=== PATIENT | male | born 1975 | race Caucasian/White ===

== ENCOUNTER 2019-10-12 12:02 | Emergency (ER) | payer MEDICAID ==
[2019-10-12] MEDS ORDERED: Lidocaine 1% 30 ML SDV INJECT ONE (12:14)
--- NOTE | 2019-10-12 12:49 | EDM.PDOC ---
ED HPI GENERAL MEDICAL PROBLEM - General Stated Complaint: CUT KNUCKLE Time Seen by Provider: 10/12/19 12:15 Source of Information: Reports: Patient History Limitations: Reports: No Limitations - History of Present Illness INITIAL COMMENTS - FREE TEXT/NARRATIVE: Patient comes emergency department today with complaints of a laceration to his left hand. 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 This happened just prior to arrival. His last tetanus immunization was just a couple years ago. He denies any paresthesia of the dorsal finger. He denies any other injury or trauma to left hand. - Related Data Allergies Allergy/AdvReac Type Severity Reaction Status Date / Time aspirin AdvReac Nausea and Verified 04/01/16 19:35 Vomiting Home Meds: Home Meds Sertraline [Zoloft] 100 mg PO BEDTIME 12/16/13 [History] hydrOXYzine pamoate [Vistaril] 1 tab PO DAILY 05/15/14 [History] Omeprazole [Prilosec] 10 mg PO DAILY 05/16/14 [History] Past Medical History Gastrointestinal History: Reports: GERD ED ROS GENERAL - Review of Systems Review Of Systems: Comprehensive ROS is negative, except as noted in HPI. ED EXAM, SKIN/RASH Exam: See Below Exam Limited By: No Limitations General Appearance: Alert, WD/WN, No Apparent Distress Peripheral Pulses: 2+: Radial (L), Radial (R) Extremities: Normal Range of Motion, Normal Capillary Refill. No: Normal Inspection (Dorsal aspect of the left index finger at the PIP joint distal to proximal there is a linear laceration fillet type laceration that does traverse the PIP joint. Does not extend into the joint. CMS is intact appropriately. He is able to flex and extend the DIP PIP and MCP joints. The rest the left hand is atraumatic.) Neurological: Alert, Oriented, Normal Cognition, No Motor/Sensory Deficits Psychiatric: Normal Affect Skin: Warm, Dry, Intact, Normal Color, No Rash ED SKIN PROCEDURES - Laceration/Wound Repair Left Digit - 2nd (Index) Appearance: Subcutaneous, Linear, Clean Distal NVT: Neuro & Vascular Intact Anesthetic Type: Local Local Anesthesia - Lidocaine (Xylocaine): 1% Plain Local Anesthetic Volume: 4cc Skin Prep: Chlorhexidine (Hibiciens), Saline Saline Irrigation (cc's): 100 Exploration/Debridement/Repair: Wound Explored, In a Bloodless Field, Explored to Base Closed with: Sutures Lac/Wound length In cm: 1.5 Suture Size: 4-0 # of Sutures: 6 Suture Type: Nylon Tetanus Status Addressed: Yes Course - Orders/Labs/Meds Meds: Medications Discontinued Medications Generic Name Dose Route Start Last Admin Trade Name Brett PRN Reason Stop Dose Admin Lidocaine HCl 30 ml 10/12/19 12:14 Xylocaine-Mpf 1% INJECT 10/12/19 12:15 ONETIME ONE Departure - Departure Time of Disposition: 12:42 Disposition: Home, Self-Care 01 Clinical Impression: Laceration of finger - Discharge Information Instructions: Laceration Care, Adult, [id number] Additional Instructions: Wash daily with soap and water. Running water over is okay no soaking your hand in water. Bacitracin and bandage until healed. Watch for signs of infection. Finger splint while at work for the next week. May take off at home. Sutures out in 10. Recheck with PCP if any concerns and when getting your sutures out. - Assessment/Plan Assessment:: Dorsal left index finger laceration 2 cm at the PIP joint sutured. Plan: Wash daily with soap and water. Running water over is okay no soaking your hand in water. Bacitracin and bandage until healed. Watch for signs of infection. Finger splint while at work for the next week. May take off at home. Sutures out in 10. Recheck with PCP if any concerns and when getting your sutures out.
[2019-10-12 13:44] VITALS: BP 162/112; PULSE 84
== END 2019-10-12 12:53 | disposition home or self-care (01) ==
LOC: VM.ED 12:02
DX: S61.211A Laceration without foreign body of left index finger without damage to nail, initial encounter (principal); K21.9 Gastro-esophageal reflux disease without esophagitis; Z79.899 Other long term (current) drug therapy; Z88.6 Allergy status to analgesic agent; W26.0XXA Contact with knife, initial encounter; Y99.0 Civilian activity done for income or pay
CPT/HCPCS: 12001; 99282; 99283; J2001

== ENCOUNTER 2020-01-17 10:05 | Emergency (ER) | payer SELFPAY ==
--- NOTE | 2020-01-17 10:50 | EDM.PDOC ---
<Jeremy Dominguez G - Last Filed: 02/23/20 15:44> ED HPI GENERAL MEDICAL PROBLEM - General Stated Complaint: COVID SYMPTOMS;CHEST PAIN Time Seen by Provider: 01/17/20 10:30 - Related Data Allergies Allergy/AdvReac Type Severity Reaction Status Date / Time aspirin AdvReac Nausea and Verified 01/17/20 14:52 Vomiting Home Meds: Home Meds Sertraline [Zoloft] 100 mg PO BEDTIME 12/16/13 [History] hydrOXYzine pamoate [Vistaril] 1 tab PO DAILY 05/15/14 [History] Omeprazole [Prilosec] 10 mg PO DAILY 05/16/14 [History] Amoxicillin 500 mg PO BID #20 tab 01/18/20 [Rx] Course - Re-Assessments/Exams Free Text/Narrative Re-Assessment/Exam: 01/18/20 15:09 Influenza returned today positive for Influenza A and Adalid Arroyo PA-C has already placed on Tamiflu. Also Strep screen positive today for Group A strep. I will place on amoxicillin 500mg PO bid for 10 days. Patient was contacted by myself and updated on the new test findings and the new prescription for AMox bid sent electronically to [facility]. Departure - Departure Disposition: Home, Self-Care 01 Clinical Impression: Influenza - Discharge Information Prescriptions: Amoxicillin 500 mg PO BID #20 tab Instructions: Influenza, Adult, [id number], Albuterol inhalation aerosol, Oseltamivir capsules, Prednisone tablets Referrals: Teja Lay MD [Primary Care Provider] - Forms: ED Department Discharge Additional Instructions: Albuterol inhaler 2 puffs every 4-6 hours as needed for trouble breathing Prednisone 20mg 2 tabs every day for 6 days Tamiflu 75mg 1 twice daily for 5 days Off work until 48 hours after your last fever Recheck in clinic in 10-14 days <Adalid Arizmendi - Last Filed: 02/24/20 09:07> ED HPI GENERAL MEDICAL PROBLEM - General Source of Information: Reports: Patient History Limitations: Reports: No Limitations - History of Present Illness INITIAL COMMENTS - FREE TEXT/NARRATIVE: Pt. presents to ER with complaints of chest pain, cough, and chest congestion that started yesterday. Pt. initially presented to clinic but was sent to ER. He states that his has also been ill with similar symptoms. Pt. complains of body aches and fatigue. No nausea, vomiting, or diarrhea. Onset Date: 01/17/20 Location: Reports: Chest, Generalized Body Aches and Chest Discomfort Pain Score (Numeric/FACES): 3 Past Medical History Gastrointestinal History: Reports: GERD Psychiatric History: Reports: Anxiety ED ROS GENERAL - Review of Systems Review Of Systems: See Below Constitutional: Reports: Fever, Chills, Malaise HEENT: Reports: Nose Pain, Rhinitis, Sinus Problem, Throat Pain Respiratory: Reports: No Symptoms Cardiovascular: Reports: No Symptoms Endocrine: Reports: No Symptoms GI/Abdominal: Reports: No Symptoms : Reports: No Symptoms Musculoskeletal: Reports: No Symptoms Skin: Reports: No Symptoms Neurological: Reports: No Symptoms Psychiatric: Reports: No Symptoms Hematologic/Lymphatic: Reports: No Symptoms Immunologic: Reports: No Symptoms ED EXAM, GENERAL - Physical Exam Exam: See Below Exam Limited By: No Limitations General Appearance: Alert, WD/WN, No Apparent Distress Eye Exam: Bilateral Eye: Conjunctival Injection, EOMI Ears: Normal External Exam, Normal Canal, Hearing Grossly Normal, Normal TMs Throat/Mouth: Normal Inspection, Normal Lips, Normal Teeth, Normal Oropharynx, Normal Voice, No Airway Compromise Head: Atraumatic, Normocephalic Neck: Normal Inspection, Supple, Non-Tender, Full Range of Motion Respiratory/Chest: No Respiratory Distress, Lungs Clear, Normal Breath Sounds, No Accessory Muscle Use, Chest Non-Tender Cardiovascular: Normal Peripheral Pulses, Regular Rate, Rhythm, No JVD GI/Abdominal: Soft, Non-Tender, No Distention, No Mass (Male) Exam: Deferred Rectal (Males) Exam: Deferred Back Exam: Normal Inspection, Full Range of Motion Extremities: Normal Inspection, Normal Range of Motion, Non-Tender, No Pedal Edema, Normal Capillary Refill Neurological: Alert, Oriented, CN II-XII Intact, Normal Cognition, Normal Reflexes, No Motor/Sensory Deficits Psychiatric: Normal Affect, Normal Mood Skin Exam: Warm, Dry, Intact, Normal Color Lymphatic: No Adenopathy Course - Vital Signs Last Recorded V/S: Last Vital Signs Temp 36.8 C 01/17/20 10:30 Pulse 82 01/17/20 10:30 Resp 16 01/17/20 10:30 BP 132/76 01/17/20 10:30 Pulse Ox 97 01/17/20 10:30 - Orders/Labs/Meds Labs: Laboratory Tests 01/17/20 01/17/20 01/17/20 Range/Units 10:15 11:21 11:21 WBC 7.3 (4.0-10.0) x10^3/uL RBC 4.56 (4.5-6.0) x10^6/uL Hgb 14.7 (14.0-18.0) g/dL Hct 42.6 (40.0-52.0) % MCV 93.4 H (78.0-93.0) fL MCH 32.2 H (26.0-32.0) pg MCHC 34.5 (32.0-36.0) g/dL RDW Coeff of Ledy 12.6 (10.0-15.0) % Plt Count 177 (130-400) x10^3/uL Neut % (Auto) 77.2 (50.0-80.0) % Lymph % (Auto) 15.1 L (25.0-50.0) % Hall % (Auto) 5.4 (2.0-11.0) % Eos % (Auto) 1.5 (0.0-4.0) % Baso % (Auto) 0.8 (0.2-1.2) % PT 10.7 (9.5-12.3) SEC INR 1.0 L (2.0-3.5) Sodium (136-145) mmol/L Potassium (3.5-5.1) mmol/L Chloride (98-107) mmol/L Carbon Dioxide (21-32) mmol/L Anion Gap (10-20) mmol/L BUN (7-18) mg/dL Creatinine (0.70-1.30) mg/dL Est Cr Clr Drug Dosing Estimated GFR (MDRD) Glucose (74-106) mg/dL Calcium (8.5-10.1) mg/dL Corrected Calcium (8.5-10.1) mg/dL Total Bilirubin (0.2-1.0) mg/dL AST (15-37) U/L ALT (16-63) U/L Alkaline Phosphatase (46-116) U/L Troponin I (<=0.056) ng/mL C-Reactive Protein (<=0.9) mg/dL Total Protein (6.4-8.2) g/dL Albumin (3.4-5.0) g/dL Globulin Albumin/Globulin Ratio SARS CoV-2 RNA Rapid OLENA Negative (NEGATIVE) 01/17/20 Range/Units 11:21 WBC (4.0-10.0) x10^3/uL RBC (4.5-6.0) x10^6/uL Hgb (14.0-18.0) g/dL Hct (40.0-52.0) % MCV (78.0-93.0) fL MCH (26.0-32.0) pg MCHC (32.0-36.0) g/dL RDW Coeff of Ledy (10.0-15.0) % Plt Count (130-400) x10^3/uL Neut % (Auto) (50.0-80.0) % Lymph % (Auto) (25.0-50.0) % Hall % (Auto) (2.0-11.0) % Eos % (Auto) (0.0-4.0) % Baso % (Auto) (0.2-1.2) % PT (9.5-12.3) SEC INR (2.0-3.5) Sodium 139 (136-145) mmol/L Potassium 4.4 (3.5-5.1) mmol/L Chloride 103 (98-107) mmol/L Carbon Dioxide 25 (21-32) mmol/L Anion Gap 15.4 (10-20) mmol/L BUN 15 (7-18) mg/dL Creatinine 1.2 (0.70-1.30) mg/dL Est Cr Clr Drug Dosing TNP Estimated GFR (MDRD) > 60 Glucose 96 (74-106) mg/dL Calcium 8.6 (8.5-10.1) mg/dL Corrected Calcium 9.00 (8.5-10.1) mg/dL Total Bilirubin 0.5 (0.2-1.0) mg/dL AST 32 (15-37) U/L ALT 24 (16-63) U/L Alkaline Phosphatase 108 (46-116) U/L Troponin I < 0.017 (<=0.056) ng/mL C-Reactive Protein < 0.2 (<=0.9) mg/dL Total Protein 6.9 (6.4-8.2) g/dL Albumin 3.5 (3.4-5.0) g/dL Globulin 3.4 Albumin/Globulin Ratio 1.03 SARS CoV-2 RNA Rapid OLENA (NEGATIVE) Departure - Departure Time of Disposition: 12:00
--- NOTE | 2020-01-17 11:14 | CR ---
[id number] RAD/RAD Chest PA And Lateral EXAM: FRONTAL AND LATERAL CHEST INDICATION: SYNCOPE, BRADYCARDIA. COMPARISON: None. DISCUSSION: The heart and lungs are normal in appearance. IMPRESSION: 1. Negative exam. Marquez Le MD 01/17/20 [id number] Thank you for allowing us to participate in the care of your patient.
[2020-01-17 11:49] LABS: ANION GAP 15.4 mmol/L (10-20); CHLORIDE,CL 103 mmol/L (98-107); SODIUM,NA 139 mmol/L (136-145)
[2020-01-17 15:00] VITALS: BP 132/76; PULSE 82
== END 2020-01-17 12:06 | disposition home or self-care (01) ==
LOC: VM.ED 10:05
DX: J10.1 Influenza due to other identified influenza virus with other respiratory manifestations (principal); Z20.828 Contact with and (suspected) exposure to other viral communicable diseases; Z79.899 Other long term (current) drug therapy; Z88.6 Allergy status to analgesic agent
CPT/HCPCS: 36415; 71046; 80053; 84484; 85025; 85610; 86140; 87081; 87804; 87804-59; 87880-QW; 93005; 99284; 99285-25; U0002

== ENCOUNTER 2020-04-04 13:51 | Emergency (ER) | payer SELFPAY ==
[2020-04-04] MEDS ORDERED: Sodium Chloride 0.9% 10 ML Syringe FLUSH PRN (14:20)
--- NOTE | 2020-04-04 14:21 | EDM.PDOC ---
ED HPI GENERAL MEDICAL PROBLEM - General Stated Complaint: CHEST PAIN, BLACKING OUT, COVID SYMPTOMS Time Seen by Provider: 04/04/20 14:25 Source of Information: Reports: Patient History Limitations: Reports: No Limitations - History of Present Illness INITIAL COMMENTS - FREE TEXT/NARRATIVE: Patient comes to the emergency department today from home with complaints of chest pain and multiple other symptoms. About 9:00 last night he developed a constant ache in his epigastric mid sternum region he relates that he is gurgling in his mid sternum. Does not get worse with deep breath cough or movement. He has had a cough since yesterday. Subjective fever and chills. Every time he eats he throws up. This very similar presentation to when he had pancreatitis about 6 months ago. 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 He has not had anything to drink for a week. His cough is dry hacking in nature and nonproductive. He is not short of breath. He has no difficulty breathing. No weakness dizziness lightheadedness. No syncope. No palpitations. No other abdominal pain other than the epigastric pain. Nausea and vomiting. No diarrhea. No hematuria dysuria or urinary frequency. Has not been exposed to anyone ill. No other Covid symptoms no other Covid exposure. Mid-Epigastric/Chest Pain Score (Numeric/FACES): 5 - Related Data Allergies Allergy/AdvReac Type Severity Reaction Status Date / Time aspirin AdvReac Nausea and Verified 04/04/20 15:58 Vomiting Home Meds: Home Meds Sertraline [Zoloft] 100 mg PO BEDTIME 12/16/13 [History] hydrOXYzine pamoate [Vistaril] 1 tab PO DAILY 05/15/14 [History] Omeprazole [Prilosec] 10 mg PO DAILY 05/16/14 [History] Amoxicillin 500 mg PO BID #20 tab 01/18/20 [Rx] Sucralfate [Carafate] 1 gm PO QIDACANDBED #120 tablet 04/04/20 [Rx] Past Medical History Gastrointestinal History: Reports: GERD Psychiatric History: Reports: Anxiety ED ROS GENERAL - Review of Systems Review Of Systems: Comprehensive ROS is negative, except as noted in HPI. ED EXAM, GENERAL - Physical Exam Exam: See Below Free Text/Narrative:: Dry hacking nonproductive cough noted appears in no acute distress. Not ill- appearing or toxic appearing. Exam Limited By: No Limitations General Appearance: Alert, WD/WN, No Apparent Distress Eye Exam: Bilateral Eye: EOMI, PERRL Ears: Normal External Exam Nose: Normal Inspection Throat/Mouth: Normal Inspection, Normal Oropharynx Head: Atraumatic, Normocephalic Neck: Normal Inspection, Supple, Non-Tender, Full Range of Motion Respiratory/Chest: No Respiratory Distress, Lungs Clear, Normal Breath Sounds, Chest Non-Tender Cardiovascular: Normal Peripheral Pulses, Regular Rate, Rhythm Peripheral Pulses: 2+: Radial (L), Radial (R), Posterior Tibial (L), Posterior Tibial (R), Dorsalis Pedis (L), Dorsalis Pedis (R) GI/Abdominal: Normal Bowel Sounds, Soft, No Distention, Pelvis Stable, Tender (Is some mild tenderness in the epigastric region without guarding rebound or rigidity. Normal bowel sounds.). No: Distended, Hernia (Male) Exam: Deferred Rectal (Males) Exam: Deferred Back Exam: Normal Inspection, Full Range of Motion Extremities: Normal Inspection, Normal Range of Motion, Normal Capillary Refill Neurological: Alert, Oriented, Normal Cognition, Normal Gait, No Motor/Sensory Deficits Psychiatric: Normal Affect, Normal Mood Skin Exam: Warm, Dry, Intact, Normal Color, No Rash Lymphatic: No Adenopathy #1 Interpretation EKG Date: 04/04/20 Time: 14:02 Rhythm: NSR Rate (Beats/Min): 66 Lander: Normal P-Wave: Present QRS: Normal ST-T: Normal QT: Normal Comparison: NA - No Prior EKG Course - Vital Signs Last Recorded V/S: Last Vital Signs Temp 97.3 F 04/04/20 14:00 Pulse 72 04/04/20 14:00 Resp 14 04/04/20 14:00 BP 148/64 H 04/04/20 14:00 Pulse Ox 97 04/04/20 14:00 - Orders/Labs/Meds Orders: Active Orders 24 hr Category Date Time Status Peripheral IV Insertion Adult [OM.PC] Stat Oth 04/04/20 14:20 Ordered Labs: Laboratory Tests 04/04/20 04/04/20 04/04/20 Range/Units 14:00 14:15 14:15 WBC 7.0 (4.0-10.0) x10^3/uL RBC 4.83 (4.5-6.0) x10^6/uL Hgb 15.5 (14.0-18.0) g/dL Hct 45.1 (40.0-52.0) % MCV 93.4 H (78.0-93.0) fL MCH 32.1 H (26.0-32.0) pg MCHC 34.4 (32.0-36.0) g/dL RDW Coeff of Ledy 12.3 (10.0-15.0) % Plt Count 195 (130-400) x10^3/uL Neut % (Auto) 64.6 (50.0-80.0) % Lymph % (Auto) 22.9 L (25.0-50.0) % [place] % (Auto) 9.2 (2.0-11.0) % Eos % (Auto) 2.7 (0.0-4.0) % Baso % (Auto) 0.6 (0.2-1.2) % Sodium 138 (136-145) mmol/L Potassium 4.2 (3.5-5.1) mmol/L Chloride 101 (98-107) mmol/L Carbon Dioxide 25 (21-32) mmol/L Anion Gap 16.2 (10-20) mmol/L BUN 20 H (7-18) mg/dL Creatinine 1.3 (0.70-1.30) mg/dL Est Cr Clr Drug Dosing TNP Estimated GFR (MDRD) > 60 Glucose 127 H (74-106) mg/dL Lactic Acid (0.4-2.0) mmol/L Calcium 8.8 (8.5-10.1) mg/dL Corrected Calcium 9.20 (8.5-10.1) mg/dL Total Bilirubin 0.3 (0.2-1.0) mg/dL AST 48 H (15-37) U/L ALT 38 (16-63) U/L Alkaline Phosphatase 118 H (46-116) U/L Troponin I < 0.017 (<=0.056) ng/mL Total Protein 6.8 (6.4-8.2) g/dL Albumin 3.5 (3.4-5.0) g/dL Globulin 3.3 Albumin/Globulin Ratio 1.06 Lipase (73-393) U/L Ethyl Alcohol (0-3) mg/dL SARS CoV-2 RNA Rapid OLENA Negative (NEGATIVE) 04/04/20 04/04/20 04/04/20 Range/Units 14:15 14:15 14:15 WBC (4.0-10.0) x10^3/uL RBC (4.5-6.0) x10^6/uL Hgb (14.0-18.0) g/dL Hct (40.0-52.0) % MCV (78.0-93.0) fL MCH (26.0-32.0) pg MCHC (32.0-36.0) g/dL RDW Coeff of Ledy (10.0-15.0) % Plt Count (130-400) x10^3/uL Neut % (Auto) (50.0-80.0) % Lymph % (Auto) (25.0-50.0) % [place] % (Auto) (2.0-11.0) % Eos % (Auto) (0.0-4.0) % Baso % (Auto) (0.2-1.2) % Sodium (136-145) mmol/L Potassium (3.5-5.1) mmol/L Chloride (98-107) mmol/L Carbon Dioxide (21-32) mmol/L Anion Gap (10-20) mmol/L BUN (7-18) mg/dL Creatinine (0.70-1.30) mg/dL Est Cr Clr Drug Dosing Estimated GFR (MDRD) Glucose (74-106) mg/dL Lactic Acid 0.6 (0.4-2.0) mmol/L Calcium (8.5-10.1) mg/dL Corrected Calcium (8.5-10.1) mg/dL Total Bilirubin (0.2-1.0) mg/dL AST (15-37) U/L ALT (16-63) U/L Alkaline Phosphatase (46-116) U/L Troponin I (<=0.056) ng/mL Total Protein (6.4-8.2) g/dL Albumin (3.4-5.0) g/dL Globulin Albumin/Globulin Ratio Lipase 256 (73-393) U/L Ethyl Alcohol < 3 (0-3) mg/dL SARS CoV-2 RNA Rapid OLENA (NEGATIVE) Microbiology 04/04/20 14:05 Nasopharyngeal Swab Influenza Type A Antigen Screen - Final NEGATIVE INFLUENZA A VIRUS AG REFERENCE RANGE: NEGATIVE 04/04/20 14:05 Nasopharyngeal Swab Influenza Type B Antigen Screen - Final NEGATIVE INFLUENZA B VIRUS AG REFERENCE RANGE: NEGATIVE Meds: Medications Discontinued Medications Generic Name Dose Route Start Last Admin Trade Name Freq PRN Reason Stop Dose Admin Al Hydroxide/Mg Hydroxide 30 ml 04/04/20 14:23 04/04/20 14:31 Gi Cocktail PO 04/04/20 14:24 30 ml ONETIME ONE Administration Lactated Ringer's 1,000 mls @ 999 mls/hr 04/04/20 14:39 04/04/20 14:55 Ringers, Lactated IV 04/04/20 15:39 999 mls/hr ONETIME ONE Administration Pantoprazole Sodium 40 mg 04/04/20 14:34 04/04/20 15:56 Protonix Iv IVPUSH 04/04/20 14:35 40 mg ONETIME ONE Administration Sodium Chloride 10 ml 04/04/20 14:20 Saline Flush FLUSH ASDIRECTED PRN Keep Vein Open - Re-Assessments/Exams Free Text/Narrative Re-Assessment/Exam: 04/04/20 14:52 EKG is unremarkable. Cocktail. Chest x-ray pending. Labs drawn. [id number] mg IV push. 04/04/20 15:12 04/04/20 15:13 Laboratory evaluation relation is rather unremarkable. He does have an elevation his MCV and MCH consistent with most likely chronic alcoholism. Sodium normal potassium okay. Creatinine 1.3. Glucose 127 AST 48 ALT 38 alkaline phosphatase 118 with a T bili of 0.3. Troponin less than 0.017. Lipase normal at 256. Alcohol negative. Covid rapid negative. 04/04/20 15:39 After the above therapy the patient's symptoms have completely resolved. Reexamination of the abdomen shows a soft nontender nondistended abdomen. His epigastric and chest symptoms have resolved. His cough is resolved. Chest x- ray is unremarkable for any acute findings. Laboratory evaluation as well. He has not had an EGD in the past that he believes. He is on Protonix chronically. We will start him on Carafate for the next 28 days prescription to the pharmacy. Consider an EGD with his primary care. Recheck if anything new or worse. He is understanding this his questions are answered. Departure - Departure Time of Disposition: 15:30 Disposition: Home, Self-Care 01 Clinical Impression: Non-cardiac chest pain GERD (gastroesophageal reflux disease) Qualifiers: Esophagitis presence: esophagitis presence not specified Qualified Code(s): K21.9 - Gastro-esophageal reflux disease without esophagitis Prescriptions: Sucralfate [Carafate] 1 gm PO QIDACANDBED #120 tablet Instructions: Nonspecific Chest Pain, Adult, [id number], Gastroesophageal Reflux Disease, Adult, [id number] Referrals: Earlene Larry MD [Primary Care Provider] - Forms: ED Department Discharge Additional Instructions: Maalox or Mylanta as needed for acute epigastric GERD/heartburn. No spicy or rich foods. Continue with your protonix. Add Carafate 1 tablet 4 times a day. 1/2hr prior to meals and at bedtime. RX sent to [facility]. Return to the ED if new or worsening symptoms. Follow up with PCP in the next 4-6 days if not improving sooner if worse. If you have continued problems consider EGD discussion if you have not had one in the past. Sepsis Event Note (ED) - Focused Exam Vital Signs: Vital Signs Temp Pulse Resp BP Pulse Ox 04/04/20 14:00 97.3 F 72 14 148/64 H 97 - My Orders Last 24 Hours: My Active Orders 04/04/20 14:20 Peripheral IV Insertion Adult [OM.PC] Stat - Assessment/Plan Last 24 Hours: My Active Orders 04/04/20 14:20 Peripheral IV Insertion Adult [OM.PC] Stat
[2020-04-04] MEDS ORDERED: GI Cocktail Oral Solution 30 ML PO ONE (14:23)
[2020-04-04] MEDS ORDERED: Pantoprazole 40 MG Vial IVPUSH ONE (14:34)
[2020-04-04] MEDS ORDERED: Lactated Ringers 1,000 ML IV ONE (14:39)
[2020-04-04 15:03] LABS: CHLORIDE,CL 101 mmol/L (98-107); SODIUM,NA 138 mmol/L (136-145)
[2020-04-04 15:04] LABS: ANION GAP 16.2 mmol/L (10-20)
--- NOTE | 2020-04-04 15:33 | CR ---
[id number] RAD/RAD Chest PA And Lateral EXAM: RAD Chest PA And Lateral CLINICAL DATA: CHEST PAIN COUGH COMPARISON: CORRELATION IS MADE WITH 2019 FINDINGS: The lungs are clear. The cardiomediastinal contour is normal. The regional bones and soft tissues are unremarkable. IMPRESSION: NO ACUTE PROCESS. Brenden Calderon MD 04/04/20 [id number] Thank you for allowing us to participate in the care of your patient.
[2020-04-04 16:06] VITALS: BP 148/64; PULSE 72
== END 2020-04-04 15:53 | disposition home or self-care (01) ==
LOC: VM.ED 13:51
DX: K21.9 Gastro-esophageal reflux disease without esophagitis (principal); F41.9 Anxiety disorder, unspecified; Z20.828 Contact with and (suspected) exposure to other viral communicable diseases; Z88.8 Allergy status to other drugs, medicaments and biological substances; Z79.899 Other long term (current) drug therapy
CPT/HCPCS: 36415; 71046; 80053; 80307; 83605; 83690; 84484; 85025; 87804; 87804-59; 93005; 93010; 96374; 99284; 99285-25; A9270-GY; C9113; J7120; U0002

== ENCOUNTER 2020-04-07 13:38 | Emergency (ER) | payer SELFPAY ==
[2020-04-07] MEDS ORDERED: Sodium Chloride 0.9% 10 ML Syringe FLUSH PRN (14:01)
[2020-04-07] MEDS ORDERED: Ondansetron 4 MG/2 ML SDV IVPUSH ONE (14:02)
[2020-04-07] MEDS ORDERED: Lactated Ringers 1,000 ML IV ONE (14:02)
[2020-04-07] MEDS ORDERED: Famotidine 20 MG/2 ML SDV IVPUSH ONE (14:02)
--- NOTE | 2020-04-07 14:11 | EDM.PDOC ---
ED HPI GENERAL MEDICAL PROBLEM - General Stated Complaint: COUGHING UP BLOOD, CUT FINGER, BLACKING OUT Time Seen by Provider: 04/07/20 13:43 - History of Present Illness INITIAL COMMENTS - FREE TEXT/NARRATIVE: Anthony is a 44 y/o male who is brought to the ER by his for vomiting blood. He reports that he was drinking malt liquor on and he blacked out. When he fell he hit his head and also caught his left index finger on the . He does not remember how he got back into the house, but he did wake up in his bed. He was then quite weak and slept all day. Then through the night he reports that he has been dizzy and started vomiting up blood. He reports that he has vomited at least 20 times and the emesis are about 10-12 oz each time and sometimes has clots in it. He tried to eat some chicken noodle soup today, but threw it up. He is very weak and dizzy. Left Eye Pain Score (Numeric/FACES): 8 Left Finger-Index Pain Score (Numeric/FACES): 8 - Related Data Allergies Allergy/AdvReac Type Severity Reaction Status Date / Time aspirin AdvReac Nausea and Verified 04/07/20 14:27 Vomiting Home Meds: Home Meds Sertraline [Zoloft] 100 mg PO BEDTIME 12/16/13 [History] hydrOXYzine pamoate [Vistaril] 1 tab PO DAILY 05/15/14 [History] Omeprazole [Prilosec] 10 mg PO DAILY 05/16/14 [History] Amoxicillin 500 mg PO BID #20 tab 01/18/20 [Rx] Sucralfate [Carafate] 1 gm PO QIDACANDBED #120 tablet 04/04/20 [Rx] Hydrocodone/Acetaminophen [Hydrocodon-Acetaminophen 5-325] 1 - 2 each PO Q6H #30 tablet 04/07/20 [Rx] Ondansetron [Ondansetron ODT] 4 mg PO Q6H PRN #15 tab.rapdis 04/07/20 [Rx] cephALEXin [Cephalexin] 500 mg PO QID 5 Days #20 tablet 04/07/20 [Rx] Past Medical History Gastrointestinal History: Reports: GERD Psychiatric History: Reports: Addiction (Alcohol/Drugs), Anxiety Social & Family History - Tobacco Use Tobacco Use Status *Q: Current Every Day Tobacco User - Alcohol Use Alcohol Use History: Yes Days Per Week of Alcohol Use: 7 Alcohol Use in Last Twelve Months: Yes Alcohol Use Frequency: Daily - Recreational Drug Use Recreational Drug Use: Yes Drug Use in Last 12 Months: Yes Recreational Drug Use Frequency: Weekly (2x weekly) Review of Systems - Review of Systems Review Of Systems: See Below Constitutional: Reports: Weakness Eyes: Reports: No Symptoms Ears: Reports: No Symptoms Nose: Reports: No Symptoms Mouth/Throat: Reports: No Symptoms Respiratory: Reports: No Symptoms Cardiovascular: Reports: No Symptoms GI/Abdominal: Reports: Decreased Appetite, Hematemesis, Nausea, Vomiting Genitourinary: Reports: No Symptoms Musculoskeletal: Reports: Other (Left index finger) Skin: Reports: No Symptoms Neurological: Reports: Dizziness, Headache Psychiatric: Reports: Depression ED EXAM, GENERAL - Physical Exam Exam: See Below Exam Limited By: No Limitations General Appearance: Alert, WD/WN, No Apparent Distress (Adult male. Clothes d irty and hygiene poor.) Eye Exam: Bilateral Eye: PERRL, Other (Left eyelid is swollen and bruised) Ears: Normal External Exam, Normal Canal, Hearing Grossly Normal Nose: Normal Inspection, Normal Mucosa Throat/Mouth: Normal Inspection, Normal Lips, Other (tongue slightly dry) Head: Normocephalic, Other (Note abrasion to left frontal region, +tender with palaption) Neck: Normal Inspection, Non-Tender Respiratory/Chest: No Respiratory Distress, Lungs Clear, Chest Non-Tender Cardiovascular: Normal Peripheral Pulses, Regular Rate, Rhythm GI/Abdominal: Soft, Non-Tender (Male) Exam: Deferred Rectal (Males) Exam: Deferred Back Exam: Normal Inspection Extremities: Normal Range of Motion, No Pedal Edema, Normal Capillary Refill, Other (Note 4 cm laceration to left index finger, not bleeding and butterfly tapes intact) Neurological: Alert, Oriented, CN II-XII Intact, Normal Cognition Psychiatric: Depressed Mood Skin Exam: Warm, Dry, Intact, Normal Color Lymphatic: No Adenopathy Course - Vital Signs Text/Narrative:: 1343 The patient was seen by the [facility]. Labs and Head CT ordered. He was given a liter of LR, Zofran 4 mg IVP, Pepcid 20mg IVP, and Protonix [address] results reviewed. Note left zygomaticofrontal maxillary complex fracture, no intracranial bleed noted. Results discussed with patient who requests to go to [facility]. Note finger laceration to left index finger is intact with butterfly tape. Dried blood noted along edges of the wound. Will not remove those tapes to repair the wound since it has been almost 48 hours. Discussed wound care with the patient. 1530 [facility] contacted. Case discussed with Dr Wang, head and neck surgeon extrusion former. He advises abx and pain meds and having the patient seen in the clinic on Thursday. Ceftriaxone 1gm IVP ordered along with Fentanyl 100mcg IV for pain. Will start him on a course of Cephalexin upon discharge and also give him some pain meds and antiemetics. Discharge instructions were given and he left the ER in stable condition. Last Recorded V/S: Last Vital Signs Temp 36.4 C 04/07/20 13:47 Pulse 88 04/07/20 13:47 Resp 18 04/07/20 13:47 BP 152/101 H 04/07/20 13:47 Pulse Ox 100 04/07/20 13:47 - Orders/Labs/Meds Orders: Active Orders 24 hr Category Date Time Status EKG Documentation Completion [RC] STAT Care 04/07/20 14:01 Active URINE DRUG SCREEN,POC [POC] Stat Lab 04/07/20 14:01 Ordered Sodium Chloride 0.9% [Saline Flush] Med 04/07/20 14:01 Active 10 ml FLUSH ASDIRECTED PRN Saline Lock Insert [OM.PC] Stat Oth 04/07/20 14:01 Ordered Medication Orders Sodium Chloride (Saline Flush) 10 ml FLUSH ASDIRECTED PRN PRN Reason: Keep Vein Open Labs: Laboratory Tests 04/07/20 04/07/20 04/07/20 Range/Units 14:12 14:12 14:12 WBC 8.2 (4.0-10.0) x10^3/uL RBC 5.02 (4.5-6.0) x10^6/uL Hgb 16.3 (14.0-18.0) g/dL Hct 47.2 (40.0-52.0) % MCV 94.0 H (78.0-93.0) fL MCH 32.5 H (26.0-32.0) pg MCHC 34.5 (32.0-36.0) g/dL RDW Coeff of Ledy 12.4 (10.0-15.0) % Plt Count 143 (130-400) x10^3/uL Neut % (Auto) 79.2 (50.0-80.0) % Lymph % (Auto) 12.9 L (25.0-50.0) % [place] % (Auto) 5.8 (2.0-11.0) % Eos % (Auto) 1.6 (0.0-4.0) % Baso % (Auto) 0.5 (0.2-1.2) % PT 9.8 (9.5-12.3) SEC INR 0.9 L (2.0-3.5) APTT 24.3 L (25.6-32.8) SEC Sodium 137 (136-145) mmol/L Potassium 4.0 (3.5-5.1) mmol/L Chloride 103 (98-107) mmol/L Carbon Dioxide 24 (21-32) mmol/L Anion Gap 14.0 (10-20) mmol/L BUN 23 H (7-18) mg/dL Creatinine 1.3 (0.70-1.30) mg/dL Est Cr Clr Drug Dosing 75.21 mL/min Estimated GFR (MDRD) > 60 Glucose 123 H (74-106) mg/dL Calcium 9.3 (8.5-10.1) mg/dL Corrected Calcium 9.54 (8.5-10.1) mg/dL Magnesium 1.9 (1.8-2.4) mg/dL Total Bilirubin 0.8 (0.2-1.0) mg/dL AST 44 H (15-37) U/L ALT 47 (16-63) U/L Alkaline Phosphatase 157 H (46-116) U/L Total Protein 7.5 (6.4-8.2) g/dL Albumin 3.7 (3.4-5.0) g/dL Globulin 3.8 Albumin/Globulin Ratio 0.97 Amylase 54 (25-115) U/L Lipase 178 (73-393) U/L Ethyl Alcohol < 3 (0-3) mg/dL Meds: Medications Generic Name Dose Route Start Last Admin Trade Name Freq PRN Reason Stop Dose Admin Sodium Chloride 10 ml 12/12/20 14:01 Saline Flush FLUSH ASDIRECTED PRN Keep Vein Open Discontinued Medications Generic Name Dose Route Start Last Admin Trade Name Brett PRN Reason Stop Dose Admin Hydrocodone Bitart/Acetaminophen 2 packet 04/07/20 15:54 Take Home: Acetam/Hydrocodon 325-5 Mg, 5 Pack PO 04/07/20 15:55 ONETIME ONE Ceftriaxone Sodium 1 gm 04/07/20 15:42 04/07/20 15:50 Rocephin IVPUSH 04/07/20 15:43 1 gm STAT ONE Administration Cephalexin 2 packet 04/07/20 15:54 Take Home: Cephalexin 500 Mg, 4 Cap Pack PO 04/07/20 15:55 ONETIME ONE Famotidine 20 mg 04/07/20 14:02 04/07/20 14:59 Pepcid IVPUSH 04/07/20 14:03 20 mg ONETIME ONE Administration Fentanyl 100 mcg 04/07/20 15:21 04/07/20 15:46 Sublimaze IVPUSH 04/07/20 15:22 100 mcg ONETIME ONE Administration Lactated Ringer's 1,000 mls @ 999 mls/hr 04/07/20 14:02 04/07/20 15:08 Ringers, Lactated IV 04/07/20 15:02 999 mls/hr ONETIME ONE Administration Ondansetron HCl 4 mg 04/07/20 14:02 04/07/20 14:59 Zofran IVPUSH 04/07/20 14:03 4 mg ONETIME ONE Administration Pantoprazole Sodium 80 mg 04/07/20 14:58 04/07/20 15:05 Protonix Iv IVPUSH 04/07/20 14:59 80 mg ONETIME ONE Administration Departure - Departure Time of Disposition: 15:47 Disposition: Home, Self-Care 01 Condition: Good Clinical Impression: Alcohol abuse, Laceration of finger Fracture of zygomaticomaxillary complex Qualifiers: Encounter type: initial encounter Fracture type: closed Laterality: left Qualified Code(s): S02.40FA - Zygomatic fracture, left side, initial encounter for closed fracture - Discharge Information *PRESCRIPTION DRUG MONITORING PROGRAM REVIEWED*: No *COPY OF PRESCRIPTION DRUG MONITORING REPORT IN PATIENT JESSE: No Prescriptions: cephALEXin [Cephalexin] 500 mg PO QID 5 Days #20 tablet Hydrocodone/Acetaminophen [Hydrocodon-Acetaminophen 5-325] 1 - 2 each PO Q6H #30 tablet Ondansetron [Ondansetron ODT] 4 mg PO Q6H PRN #15 tab.rapdis PRN Reason: Nausea Instructions: Acetaminophen; Hydrocodone tablets or capsules, Alcohol Use Disorder, Zygoma Fracture, Ondansetron tablets, Cephalexin tablets or capsules, Pain Medicine Instructions, [id number] Referrals: Earlene Larry MD [Primary Care Provider] - Additional Instructions: -Call [facility], Dr Hernando Wang's office on Thursday and set up an appt to be seen. [address] [address] -DO NOT BLOW YOUR NOSE. This could cause further bleeding or injury or free air could enter into your skull. Only dab your nose gently with a tissue. -Use ibuprofen/acetaminophen as needed for pain -Hydrocodone-APAP 5-325mg 1-2 tablets oral every 4-6 hours as needed for pain #10(ER) #30(Rx) -Zofran ODT 4mg oral every 4-6 hours as needed for nausea #15(Rx) -Cephalexin 500mg oral 4x daily #8 (ER) #20(Rx) -Keep the finger laceration covered with the butterfly tapes for the next week. Gently wash the dried blood from the wound and apply antibiotic ointment and a bandaid as needed. The wound is not able to be repaired since your injury occurred almost 48 hours ago. The wound will need to heal from the bottom up. -Avoid drinking any alcohol or using any street drugs. This may hinder any potential surgical repair that will need to be done. -Consider getting into a substance abuse rehab program again to help you get sober. -Return to the ER with any questions or concerns Sepsis Event Note (ED) - Focused Exam Vital Signs: Vital Signs Temp Pulse Resp BP Pulse Ox 04/07/20 13:47 36.4 C 88 18 152/101 H 100 - My Orders Last 24 Hours: My Active Orders 04/07/20 14:01 EKG Documentation Completion [RC] STAT URINE DRUG SCREEN,POC [POC] Stat Sodium Chloride 0.9% [Saline Flush] 10 ml FLUSH ASDIRECTED PRN Saline Lock Insert [OM.PC] Stat - Assessment/Plan Last 24 Hours: My Active Orders 04/07/20 14:01 EKG Documentation Completion [RC] STAT URINE DRUG SCREEN,POC [POC] Stat Sodium Chloride 0.9% [Saline Flush] 10 ml FLUSH ASDIRECTED PRN Saline Lock Insert [OM.PC] Stat
--- NOTE | 2020-04-07 14:31 | CT ---
[id number] CT/CT Head WO IV EXAM: NONCONTRAST HEAD CT INDICATION: FALL 2 DAYS AGO WITH POSITIVE LOSS OF CONSCIOUSNESS, COMPARISON: None. DISCUSSION: The ventricles and sulci are normal in size and configuration. The gay and white matter are normal in attenuation. No mass effect or midline shift. No acute hemorrhage or extra-axial fluid collection. No acute territorial infarct is identified. Acute zygomaticomaxillary complex fractures involving the lateral orbital rim where there is up to 2 mm displacement, the zygomatic arch, the orbital floor, and the anterior and posterior villatoro of the maxillary sinus. The anterior wall of the maxillary sinus is depressed up to 4.5 mm. Associated blood products within the left maxillary sinus. No extraocular muscle entrapment is seen. Mild scattered left ethmoid sinus mucosal thickening. IMPRESSION: 1. Left zygomaticofrontal maxillary complex fractures. 2. No evidence of acute intracranial trauma. Marquez Le MD 04/07/20 0699 Thank you for allowing us to participate in the care of your patient.
[2020-04-07 14:38] LABS: PTT,PARTIAL THROMBOPLSTIN TIME 24.3 SEC (25.6-32.8)
[2020-04-07 14:41] LABS: CHLORIDE,CL 103 mmol/L (98-107); SODIUM,NA 137 mmol/L (136-145)
[2020-04-07] MEDS ORDERED: Pantoprazole 40 MG Vial IVPUSH ONE (14:58)
[2020-04-07] MEDS ORDERED: fentaNYL 100 MCG/2 ML SDV IVPUSH ONE (15:21)
[2020-04-07] MEDS ORDERED: cefTRIAXone 1 GM Vial IVPUSH ONE (15:42)
[2020-04-07] MEDS ORDERED: Take Home: Cephalexin 500 MG Cap, 4 Cap Pack PO ONE (15:54)
[2020-04-07] MEDS ORDERED: Take Home: Acetaminophen/HYDROcodone 325-5 MG, 5 Tab Pack PO ONE (15:54)
[2020-04-07] MEDS ORDERED: Acetaminophen/HYDROcodone 325-5 MG Tab PO ONE (16:25)
[2020-04-07 16:53] VITALS: BP 150/88; PULSE 67
== END 2020-04-07 16:40 | disposition home or self-care (01) ==
LOC: VM.ED 13:38
DX: S02.40FA Zygomatic fracture, left side, initial encounter for closed fracture (principal); S61.211A Laceration without foreign body of left index finger without damage to nail, initial encounter; F10.10 Alcohol abuse, uncomplicated; K21.9 Gastro-esophageal reflux disease without esophagitis; F17.200 Nicotine dependence, unspecified, uncomplicated; Z88.8 Allergy status to other drugs, medicaments and biological substances; Z79.899 Other long term (current) drug therapy; W01.10XA Fall on same level from slipping, tripping and stumbling with subsequent striking against unspecified object, initial encounter; W45.8XXA Other foreign body or object entering through skin, initial encounter
CPT/HCPCS: 70450; 80053; 80307; 82150; 83690; 83735; 85025; 85610; 85730; 93005; 96374; 96375; 99284; A9270; C9113; J0696; J2405; J3010; J3490; J7120

== ENCOUNTER 2021-04-02 10:40 | Observation (INO) | payer SELFPAY ==
[2021-04-02] MEDS ORDERED: Haloperidol Lactate 5 MG/ML SDV IV ONE (10:48)
[2021-04-02] MEDS ORDERED: LORazepam 2 MG/ML SDV IVPUSH ONE ×2 (10:48→11:05)
[2021-04-02] MEDS ORDERED: levETIRAcetam 1,000 MG in Sodium Chloride 0.9% 100 ML IV ONE (11:03)
[2021-04-02] MEDS ORDERED: levETIRAcetam in NaCl (iso-os) 500 MG in Premix Bag 1 BAG IV ONE ×4 (11:08→11:30)
--- NOTE | 2021-04-02 11:13 | EDM.PDOC ---
ED HPI GENERAL MEDICAL PROBLEM - General Stated Complaint: SEIZURE ACTIVITY Time Seen by Provider: 04/02/21 10:45 Source of Information: Reports: Family History Limitations: Reports: No Limitations - History of Present Illness INITIAL COMMENTS - FREE TEXT/NARRATIVE: Pt. presents to ER with possible seizure activity involving his whole body. states that the episode started approx. 45 min prior to arrival to hospital. EMS was summoned. Pt. was given a total of 5mg of valium with no cessation of activity. states that he has a history of "stress induced" seizure activity. She is unable to relate of the patient has been worked up for seizures or has had an EEG. She is unable to relate when the last similar episode was. He is currently on lamotrigine 150mg once daily. Pt. was switched from alprazolam to lorazepam yesterday for anxiety. He has Pt. has no notes from neurology in his chart. He does have a history of major depressive disorder, anxiety, dysthymic disorder and ETOH abuse. No neuroimaging studies noted in his clinic chart. states that he has not had any recent head trauma that she is aware of. She states that the patient had stopped drinking for some time, but recently started binge drinking approx. 10-15 light beers several times per week. She states that the patient can stop drinking without any symptoms, such as DTs. 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 On arrival to ER, pt. is unresponsive with sonorous respirations. He is maintaining his own airway. Pt. has intermittent episodes of shaking, involving primarily the upper portion of the body. Total time of episode today was from 9:45am until 11:08am after he was medicated in ER. Onset: Today - Related Data Allergies Allergy/AdvReac Type Severity Reaction Status Date / Time aspirin AdvReac Nausea and Verified 04/02/21 12:44 Vomiting Home Meds: Home Meds Sertraline [Zoloft] 100 mg PO BEDTIME 12/16/13 [History] LORazepam [Ativan] 1 mg PO TID PRN 04/02/21 [History] Pantoprazole Sodium [Protonix] 40 mg PO DAILY 04/02/21 [History] atorvaSTATin Calcium [Lipitor] 20 mg PO DAILY 04/02/21 [History] lamoTRIgine [LaMICtal] 150 mg PO DAILY 04/02/21 [History] Past Medical History Gastrointestinal History: Reports: GERD Psychiatric History: Reports: Addiction (Alcohol/Drugs), Anxiety Social & Family History - Family History Family Medical History: Unobtainable - Caffeine Use Caffeine Use: Reports: None ED ROS GENERAL - Review of Systems Review Of Systems: Unable To Obtain Reason Not Obtained: postictal ED EXAM, GENERAL - Physical Exam Exam: See Below Exam Limited By: No Limitations General Appearance: Obtunded Eye Exam: Bilateral Eye: EOMI, PERRL Nose: Normal Inspection, No Blood Throat/Mouth: Normal Inspection, Normal Lips, Normal Oropharynx, No Airway Compromise Head: Atraumatic, Normocephalic Neck: Normal Inspection, Supple Respiratory/Chest: No Respiratory Distress, Lungs Clear, Normal Breath Sounds, No Accessory Muscle Use, Chest Non-Tender Cardiovascular: Normal Peripheral Pulses, Regular Rate, Rhythm, No Edema, No JVD, No Murmur Peripheral Pulses: 4+: Radial (L) GI/Abdominal: Soft, Non-Tender, No Distention, No Mass (Male) Exam: Deferred Rectal (Males) Exam: Deferred Back Exam: Normal Inspection, Full Range of Motion Extremities: Normal Inspection, Normal Range of Motion, Non-Tender, No Pedal Edema, Normal Capillary Refill Neurological: Other (Initially unresponsive, seizing. Was postictal after medications. Somnolent, arousable and answering some questions at time of admission.) Psychiatric: Normal Affect, Normal Mood Skin Exam: Warm, Dry, Intact, Normal Color, No Rash Course - Vital Signs Last Recorded V/S: Last Vital Signs Temp 36.2 C 04/02/21 10:40 Pulse 88 04/02/21 10:40 Resp 24 H 04/02/21 10:40 BP 143/100 H 04/02/21 10:40 Pulse Ox 98 04/02/21 10:40 - Orders/Labs/Meds Orders: Active Orders 24 hr Category Date Time Status DRUG SCREEN, URINE [URCHEM] Stat Lab 04/02/21 10:54 Ordered UA RFX ANIKA AND CULT IF INDIC [URIN] Stat Lab 04/02/21 10:54 Ordered Labs: Laboratory Tests 04/02/21 04/02/21 04/02/21 Range/Units 11:05 11:05 11:05 WBC 7.8 (4.0-10.0) x10^3/uL RBC 4.73 (4.5-6.0) x10^6/uL Hgb 15.5 (14.0-18.0) g/dL Hct 44.3 (40.0-52.0) % MCV 93.7 H (78.0-93.0) fL MCH 32.8 H (26.0-32.0) pg MCHC 35.0 (32.0-36.0) g/dL RDW Coeff of Ledy 13.1 (10.0-15.0) % Plt Count 182 (130-400) x10^3/uL Immature Gran % (Auto) 0.30 (0.00-0.43) % Neut % (Auto) 74.7 (50.0-80.0) % Lymph % (Auto) 16.6 L (25.0-50.0) % [place] % (Auto) 5.4 (2.0-11.0) % Eos % (Auto) 2.4 (0.0-4.0) % Baso % (Auto) 0.6 (0.2-1.2) % Neut # (Auto) 5.8 (1.8-7.7) x10^3/uL Lymph # (Auto) 1.3 (1.0-4.8) x10^3/uL [place] # (Auto) 0.4 (0.0-0.8) x10^3/uL Eos # (Auto) 0.2 (0.0-0.5) x10^3/uL Baso # (Auto) 0.1 (0.0-0.2) x10^3/uL Immature Gran # (Auto) 0.02 (0.00-0.07) x10^3/uL PT 11.0 (9.9-12.5) SEC INR 1.0 L (2.0-3.5) APTT (25.6-32.8) SEC Sodium 140 (136-145) mmol/L Potassium 4.0 (3.5-5.1) mmol/L Chloride 103 (98-107) mmol/L Carbon Dioxide 21 (21-32) mmol/L Anion Gap 20.0 H (5-15) mmol/L BUN 13 (7-18) mg/dL Creatinine 1.1 (0.70-1.30) mg/dL Est Cr Clr Drug Dosing TNP Estimated GFR (MDRD) > 60 Glucose 82 (70-99) mg/dL Calcium 8.7 (8.5-10.1) mg/dL Corrected Calcium 9.0 (8.5-10.1) mg/dL Phosphorus 3.0 (2.6-4.7) mg/dL Magnesium 2.2 (1.8-2.4) mg/dL Total Bilirubin 0.3 (0.2-1.0) mg/dL AST 19 (15-37) U/L ALT 25 (16-63) U/L Alkaline Phosphatase 105 (46-116) U/L Troponin I High Sens 5 (<=76) ng/L Total Protein 7.2 (6.4-8.2) g/dL Albumin 3.6 (3.4-5.0) g/dL Globulin 3.6 Albumin/Globulin Ratio 1.00 TSH, Ultra Sensitive 1.034 (0.358-3.74) uIU/mL Ethyl Alcohol 97 H (0-3) mg/dL SARS CoV-2 RNA Rapid OLENA (NEGATIVE) 04/02/21 04/02/21 Range/Units 11:05 12:11 WBC (4.0-10.0) x10^3/uL RBC (4.5-6.0) x10^6/uL Hgb (14.0-18.0) g/dL Hct (40.0-52.0) % MCV (78.0-93.0) fL MCH (26.0-32.0) pg MCHC (32.0-36.0) g/dL RDW Coeff of Ledy (10.0-15.0) % Plt Count (130-400) x10^3/uL Immature Gran % (Auto) (0.00-0.43) % Neut % (Auto) (50.0-80.0) % Lymph % (Auto) (25.0-50.0) % [place] % (Auto) (2.0-11.0) % Eos % (Auto) (0.0-4.0) % Baso % (Auto) (0.2-1.2) % Neut # (Auto) (1.8-7.7) x10^3/uL Lymph # (Auto) (1.0-4.8) x10^3/uL [place] # (Auto) (0.0-0.8) x10^3/uL Eos # (Auto) (0.0-0.5) x10^3/uL Baso # (Auto) (0.0-0.2) x10^3/uL Immature Gran # (Auto) (0.00-0.07) x10^3/uL PT (9.9-12.5) SEC INR (2.0-3.5) APTT 23.5 L (25.6-32.8) SEC Sodium (136-145) mmol/L Potassium (3.5-5.1) mmol/L Chloride (98-107) mmol/L Carbon Dioxide (21-32) mmol/L Anion Gap (5-15) mmol/L BUN (7-18) mg/dL Creatinine (0.70-1.30) mg/dL Est Cr Clr Drug Dosing Estimated GFR (MDRD) Glucose (70-99) mg/dL Calcium (8.5-10.1) mg/dL Corrected Calcium (8.5-10.1) mg/dL Phosphorus (2.6-4.7) mg/dL Magnesium (1.8-2.4) mg/dL Total Bilirubin (0.2-1.0) mg/dL AST (15-37) U/L ALT (16-63) U/L Alkaline Phosphatase (46-116) U/L Troponin I High Sens (<=76) ng/L Total Protein (6.4-8.2) g/dL Albumin (3.4-5.0) g/dL Globulin Albumin/Globulin Ratio TSH, Ultra Sensitive (0.358-3.74) uIU/mL Ethyl Alcohol (0-3) mg/dL SARS CoV-2 RNA Rapid OLENA Negative (NEGATIVE) Meds: Medications Discontinued Medications Generic Name Dose Route Start Last Admin Trade Name Freq PRN Reason Stop Dose Admin Haloperidol Lactate 5 mg 04/02/21 10:48 04/02/21 10:54 Haloperidol Lactate 5 Mg/Ml Sdv IV 04/02/21 10:49 5 mg ONETIME ONE Administration Levetiracetam 500 mg/ Premix 100 mls @ 400 mls/hr 04/02/21 11:08 04/02/21 11:17 IV 04/02/21 11:22 400 mls/hr ONETIME ONE Administration Levetiracetam 500 mg/ Premix 100 mls @ 400 mls/hr 04/02/21 11:30 04/02/21 11:39 IV 04/02/21 11:44 400 mls/hr ONETIME ONE Administration Lorazepam 1 mg 04/02/21 10:48 04/02/21 10:52 Lorazepam 2 Mg/Ml Sdv IVPUSH 04/02/21 10:49 1 mg STAT ONE Administration Lorazepam 1 mg 04/02/21 11:05 04/02/21 11:02 Lorazepam 2 Mg/Ml Sdv IVPUSH 04/02/21 11:06 1 mg STAT ONE Administration Departure - Departure Time of Disposition: 13:06 Disposition: Refer to Observation Clinical Impression: New onset seizure - Discharge Information Referrals: Earlene Larry MD [Primary Care Provider] - Sepsis Event Note (ED) - Focused Exam Vital Signs: Vital Signs Temp Pulse Resp BP Pulse Ox 04/02/21 10:40 36.2 C 88 24 H 143/100 H 98 - Problem List Review Problem List Initiated/Reviewed/Updated: Yes - My Orders Last 24 Hours: My Active Orders 04/02/21 10:54 DRUG SCREEN, URINE [URCHEM] Stat UA RFX ANIKA AND CULT IF INDIC [URIN] Stat - Assessment/Plan Last 24 Hours: My Active Orders 04/02/21 10:54 DRUG SCREEN, URINE [URCHEM] Stat UA RFX ANIKA AND CULT IF INDIC [URIN] Stat Plan: Pt. will be admitted observation. He is a code 1. Discussed case with Dr. Moore, [facility], as well as pt. PCP, Dr. Larry. Will start patient on Keppra 1000mg PO twice daily. He was loaded with Keppra 1000mg IV in ER. All labs were within normal limits. UA and UDS are pending. Blood alcohol was 97, consistent with his consumption of alcohol last night. CT brain without contrast was negative. Will monitor CIWAA during admission. Will start thiamine and folate. Anticipate discharge tomorrow, pending improvement in mentation and no further seizure activity. EEG, brain MRI, and neuro referral will be made. Discussed this with Dr. Larry who will take care of this. She will also assume care of patient in the AM if he requires hospitalization after tonight.
[2021-04-02 11:41] LABS: CHLORIDE,CL 103 mmol/L (98-107); SODIUM,NA 140 mmol/L (136-145)
--- NOTE | 2021-04-02 12:24 | CT ---
[id number] CT/CT Head WO IV EXAM: CT Head WO IV CLINICAL DATA: NEW ONSET SEIZURE ACTIVITY COMPARISON: CORRELATION IS MADE WITH APRIL 07, 2020 FINDINGS: There is no mass or mass effect. There is no hemorrhage or hydrocephalus. There are no extra-axial fluid collections. There are no sites of abnormal attenuation. IMPRESSION: NO PLAIN CT EVIDENCE OF ACUTE INTRACRANIAL PROCESS. Brenden Calderon MD 04/02/21 1980 Thank you for allowing us to participate in the care of your patient.
[2021-04-02] MEDS ORDERED: LORazepam 2 MG/ML SDV IV PRN (13:36)
[2021-04-02] MEDS: Lactated Ringers 1,000 ML IV SCH (14:22)
[2021-04-02] MEDS: Pantoprazole 40 MG Vial IV SCH (14:22)
[2021-04-02 16:17] LABS: BARBITURATE SCREEN,URINE NEGATIVE (NEGATIVE)
[2021-04-02 16:18] LABS: BENZODIAZEPINES SCREEN,URINE POSITIVE (NEGATIVE); BUPRENORPHINE SCREEN,URINE NEGATIVE (NEGATIVE); METHAMPHETAMINE SCREEN, URINE NEGATIVE (NEGATIVE); THC SCREEN,URINE 50 NG/ML POSITIVE (NEGATIVE)
[2021-04-02] MEDS: Folic Acid 1 MG Tab PO SCH (17:52)
[2021-04-02] MEDS: Thiamine 100 MG Tab PO SCH (17:52)
[2021-04-02] MEDS: Multivitamins with Iron/Calcium/Folic Acid/Minerals Tab PO SCH (17:52)
[2021-04-02] MEDS: levETIRAcetam 500 MG Tab PO SCH (17:52)
[2021-04-02] MEDS ORDERED: Sertraline 100 MG Tab PO SCH (20:00)
[2021-04-03] MEDS: Lactated Ringers 1,000 ML IV SCH (00:17)
[2021-04-03] MEDS ORDERED: lamoTRIgine 100 MG Tab PO SCH (08:00)
[2021-04-03] MEDS ORDERED: atorvaSTATin 10 MG Tab PO SCH (08:00)
[2021-04-03] MEDS: Multivitamins with Iron/Calcium/Folic Acid/Minerals Tab PO SCH (08:11)
[2021-04-03] MEDS: Pantoprazole 40 MG Vial IV SCH (08:11)
[2021-04-03] MEDS: Thiamine 100 MG Tab PO SCH (08:12)
[2021-04-03] MEDS: Folic Acid 1 MG Tab PO SCH (08:12)
[2021-04-03] MEDS: levETIRAcetam 500 MG Tab PO SCH (08:12)
[2021-04-03 10:53] VITALS: BP 130/81; PULSE 52
[2021-04-03] MEDS ORDERED: Nicotine 14 MG/24 Hr Patch TRDERM SCH (14:00)
--- NOTE | 2021-04-07 11:16 | PCM.DCSUM1 ---
Discharge Summary - Hospital Course Free Text/Narrative:: Pt. was admitted observation after experiencing a seizure. He did well overnight. On admission, seizure was treated with IV valium. He was also loaded with Keppra, and transitioned to oral keppra at the advice of neurology. Pt. has done well since then. No further seizure activity. He has been alert and oriented. CIWAA scoring was ordered due to pt. history of alcohol consumption. CIWAA score has consistently been 0-2 and not going any higher. Diagnosis: Stroke: No - Discharge Data Discharge Date: 04/03/21 Discharge Disposition: Home, Self-Care 01 Condition: Good - Referral to Home Health Primary Care Physician: Earlene Larry MD - Discharge Diagnosis/Problem(s) (1) Seizure SNOMED Code(s): 26399107 ICD Code: R56.9 - UNSPECIFIED CONVULSIONS Status: Acute (2) New onset seizure SNOMED Code(s): 27162722 ICD Code: R56.9 - UNSPECIFIED CONVULSIONS Status: Acute - Discharge Plan Prescriptions/Med Rec: Folic Acid 1 mg PO DAILY #30 tablet levETIRAcetam [Keppra] 1,000 mg PO BIDMEALS 30 Days #60 tablet Thiamine [Vitamin B-1] 100 mg PO DAILY #30 tablet Home Medications: Home Meds Sertraline [Zoloft] 100 mg PO BEDTIME 12/16/13 [History] LORazepam [Ativan] 1 mg PO TID PRN 04/02/21 [History] Pantoprazole Sodium [Protonix] 40 mg PO DAILY 04/02/21 [History] atorvaSTATin Calcium [Lipitor] 20 mg PO DAILY 04/02/21 [History] lamoTRIgine [LaMICtal] 150 mg PO DAILY 04/02/21 [History] Folic Acid 1 mg PO DAILY #30 tablet 04/03/21 [Rx] Thiamine [Vitamin B-1] 100 mg PO DAILY #30 tablet 04/03/21 [Rx] levETIRAcetam [Keppra] 1,000 mg PO BIDMEALS 30 Days #60 tablet 04/03/21 [Rx] Forms: ED Department Discharge Referrals: Earlene Larry MD [Primary Care Provider] - 04/11/21 1:00 pm (You have a follow up appt. with Dr. Nixon Larry on April 10, 2021 at 1pm---[facility]. Please wear a mask to your appt.) - Discharge Summary/Plan Comment DC Time >30 min.: Yes Total # of Minutes for Discharge Time: 60 Discharge Summary/Plan Comment: Pt. discharged. Follow-up scheduled with Dr. Larry. Discussed case with her. She put in a referral for EEG, MRI and neuro consult. Pt. was informed and understands that he is forbidden from driving. Keppra 1000mg twice daily. Continue with other home medications. - General Info Functional Status: Reports: Pain Controlled - Review of Systems General: Reports: No Symptoms HEENT: Reports: No Symptoms Pulmonary: Reports: No Symptoms Cardiovascular: Reports: No Symptoms Gastrointestinal: Reports: No Symptoms Genitourinary: Reports: No Symptoms Musculoskeletal: Reports: No Symptoms Skin: Reports: No Symptoms Neurological: Reports: No Symptoms Psychiatric: Reports: No Symptoms - Patient Data Vitals - Most Recent: Last Vital Signs Temp 36.8 C 04/03/21 10:00 Pulse 52 L 04/03/21 10:00 Resp 16 04/03/21 10:00 BP 130/81 04/03/21 10:00 Pulse Ox 95 04/03/21 10:00 Weight - Most Recent: 72.575 kg Med Orders - Current: Current Medications Discontinued Medications Atorvastatin Calcium (Atorvastatin 10 Mg Tab) 20 mg PO DAILY [facility] Last Admin: 04/03/21 08:12 Dose: 20 mg Documented by: Folic Acid (Folic Acid 1 Mg Tab) 1 mg PO DAILY [facility] Stop: 04/04/21 08:01 Last Admin: 04/03/21 08:12 Dose: 1 mg Documented by: Haloperidol Lactate (Haloperidol Lactate 5 Mg/Ml Sdv) 5 mg IV ONETIME ONE Stop: 04/02/21 10:49 Last Admin: 04/02/21 10:54 Dose: 5 mg Documented by: Levetiracetam 500 mg/ Premix 100 mls @ 400 mls/hr IV ONETIME ONE Stop: 04/02/21 11:22 Last Admin: 04/02/21 11:17 Dose: 400 mls/hr Documented by: Levetiracetam 500 mg/ Premix 100 mls @ 400 mls/hr IV ONETIME ONE Stop: 04/02/21 11:44 Last Admin: 04/02/21 11:39 Dose: 400 mls/hr Documented by: Lactated Ringer's (Ringers, Lactated) 1,000 mls @ 100 mls/hr IV ASDIRECTED [facility] Last Admin: 04/03/21 00:17 Dose: 100 mls/hr Documented by: Lamotrigine (Lamotrigine 100 Mg Tab) 150 mg PO DAILY [facility] Last Admin: 04/03/21 08:12 Dose: 150 mg Documented by: Levetiracetam (Levetiracetam 500 Mg Tab) 1,000 mg PO BIDMEALS [facility] Last Admin: 04/03/21 08:12 Dose: 1,000 mg Documented by: Lorazepam (Lorazepam 2 Mg/Ml Sdv) 1 mg IVPUSH STAT ONE Stop: 04/02/21 10:49 Last Admin: 04/02/21 10:52 Dose: 1 mg Documented by: Lorazepam (Lorazepam 2 Mg/Ml Sdv) 1 mg IVPUSH STAT ONE Stop: 04/02/21 11:06 Last Admin: 04/02/21 11:02 Dose: 1 mg Documented by: Lorazepam (Lorazepam 2 Mg/Ml Sdv) 0 mg IV ASDIRECTED PRN; Protocol PRN Reason: Withdrawal Symptoms Multivitamins/Minerals (Multivitamins With Iron/Calcium/Folic Acid/Minerals Tab) 1 tab PO DAILY [facility] Last Admin: 04/03/21 08:11 Dose: 1 tab Documented by: Nicotine (Nicotine 14 Mg/24 Hr Patch) 14 mg TRDERM DAILY [facility] Pantoprazole Sodium (Pantoprazole 40 Mg Vial) 40 mg IV DAILY [facility] Last Admin: 04/03/21 08:11 Dose: 40 mg Documented by: Sertraline HCl (Sertraline 100 Mg Tab) 100 mg PO BEDTIME [facility] Last Admin: 04/02/21 20:07 Dose: 100 mg Documented by: Thiamine HCl (Thiamine 100 Mg Tab) 100 mg PO DAILY [facility] Last Admin: 04/03/21 08:12 Dose: 100 mg Documented by: - Exam General: Reports: Alert, Oriented HEENT: Reports: Pupils Equal, Pupils Reactive, EOMI, Mucous Membr. Moist/[place] Lungs: Reports: Clear to Auscultation, Normal Respiratory Effort Cardiovascular: Reports: Regular Rate, Regular Rhythm, No Murmurs GI/Abdominal Exam: Normal Bowel Sounds, Soft, Non-Tender, No Organomegaly, No Distention, No Mass (Male) Exam: Deferred Rectal (Males) Exam: Deferred Back Exam: Reports: Normal Inspection, Full Range of Motion Extremities: Normal Inspection, Normal Range of Motion, Non-Tender, No Pedal Edema, Normal Capillary Refill Skin: Reports: Warm, Dry, Intact Wound/Incisions: Reports: Healing Well Neurological: Reports: No New Focal Deficit Psy/Mental Status: Reports: Alert, Normal Affect, Normal Mood *Q Meaningful Use (DIS) - VTE *Q VTE Anticoagulation Contraindications: Med/TX Not Indicated/Need
== END 2021-04-03 10:40 | disposition home or self-care (01) ==
LOC: VM.ED 10:40 → VM.MS 12:56
PROVIDERS: ADMIT Physician Assistant; ATTEND Physician Assistant
DX: G40.89 Other seizures (principal); K21.9 Gastro-esophageal reflux disease without esophagitis; Z88.8 Allergy status to other drugs, medicaments and biological substances; Z79.899 Other long term (current) drug therapy; Z20.822 Contact with and (suspected) exposure to COVID-19
CPT/HCPCS: 36415; 70450; 80053; 80305-QW; 80307; 81003; 83735; 84100; 84443; 84484; 85025; 85610; 85730; 93005; 96374; 96375; 96376; 99285-25; A9270-GY; C9113; J1630; J1953; J2060; J7120; U0002

== ENCOUNTER 2023-08-24 15:34 | Inpatient (IN) | payer SELFPAY ==
[2023-08-24 15:54] LABS: BASOPHILS PERCENT AUTO 0.3 % (0.2-1.2); EOSINOPHILS ABSOLUTE AUTO 0.1 x10^3/uL (0.0-0.5); EOSINOPHILS PERCENT AUTO 0.9 % (0.0-4.0); HEMATOCRIT 45.5 % (40.0-52.0); HEMOGLOBIN 15.5 g/dL (14.0-18.0); IMMATURE GRAN ABSOLUTE AUTO 0.03 x10^3/uL (0.00-0.07); LYMPHOCYTES PERCENT AUTO 10.2 % (25.0-50.0); MEAN CORPUSCULAR HEMOGLOBIN 32.7 pg (26.0-32.0); MEAN CORPUSCULAR HGB CONC 34.1 g/dL (32.0-36.0); MONOCYTES ABSOLUTE AUTO 0.5 x10^3/uL (0.0-0.8); MONOCYTES PERCENT AUTO 5.4 % (2.0-11.0); NEUTROPHILS ABSOLUTE AUTO 7.9 x10^3/uL (1.8-7.7); NEUTROPHILS PERCENT AUTO 82.9 % (50.0-80.0); PLATELET COUNT,PLT 185 x10^3/uL (130-400); RED BLOOD CELL COUNT 4.74 x10^6/uL (4.5-6.0); WHITE BLOOD CELL COUNT,WBC 9.6 x10^3/uL (4.0-10.0)
[2023-08-24] MEDS: HYDROmorphone 0.5 MG/0.5 ML Syringe IVPUSH ONE ×2 (15:55→16:57)
[2023-08-24] MEDS: Sodium Chloride 0.9% 1,000 ML IV ONE (15:55)
[2023-08-24] MEDS: Ondansetron 4 MG/2 ML SDV IVPUSH ONE (15:55)
[2023-08-24 16:14] LABS: A/G RATIO 0.97; ALANINE AMINOTRANSFERASE,ALT 37 U/L (16-63); ALBUMIN 3.8 g/dL (3.4-5.0); ALKALINE PHOSPHATASE 161 U/L (46-116); ASPARTATE AMNIOTRANSFERASE,AST 31 U/L (15-37); BILIRUBIN TOTAL 0.5 mg/dL (0.2-1.0); BLOOD UREA NITROGEN,BUN 16 mg/dL (7-18); CALCIUM 9.3 mg/dL (8.5-10.1); CARBON DIOXIDE,CO2 23 mmol/L (21-32); CHLORIDE,CL 102 mmol/L (98-107); CREATININE 1.3 mg/dL (0.70-1.30); GLUCOSE RANDOM 136 mg/dL (70-99); POTASSIUM,K 4.1 mmol/L (3.5-5.1); PROTEIN TOTAL,TP 7.7 g/dL (6.4-8.2); SODIUM,NA 139 mmol/L (136-145)
[2023-08-24 16:17] LABS: ANION GAP 18.1 mmol/L (5-15); C-REACTIVE PROTEIN < 0.50 mg/dL (<=0.50); ESTIMATED GFR 68 mL/min (>=60)
[2023-08-24 16:22] LABS: LIPASE 418 U/L (19-71)
[2023-08-24] MEDS: Iopamidol 612 MG/ML 100 ML Bottle IVPUSH ONE (16:56)
[2023-08-24 17:07] LABS: APPEARANCE,URINE CLEAR (CLEAR); BILIRUBIN,URINE NEGATIVE (NEGATIVE); COLOR,URINE YELLOW (YELLOW); GLUCOSE,URINE NEGATIVE (NEGATIVE); KETONES,URINE NEGATIVE (NEGATIVE); LEUKOCYTE ESTERASE,URINE NEGATIVE (NEGATIVE); NITRITE,URINE NEGATIVE (NEGATIVE); OCCULT BLOOD,URINE TRACE-INTACT (NEGATIVE); PH,URINE 5.5 (5.0-8.0); PROTEIN,URINE NEGATIVE (NEGATIVE); UROBILINOGEN,URINE 0.2 EU/dL (0.2)
[2023-08-24 17:18] LABS: RBC,URINE 0-5 /HPF (NOT SEEN); SQUAMOUS EPITHELIAL CELLS,UR RARE /HPF (NOT SEEN); WBC,URINE NOT SEEN /HPF (NOT SEEN)
[2023-08-24 17:19] LABS: BACTERIA,URINE NOT SEEN /HPF (NOT SEEN)
[2023-08-24] MEDS ORDERED: Ondansetron 4 MG Tab.DIS PO PRN (19:30)
[2023-08-24] MEDS ORDERED: Naloxone 0.4 MG/ML SDV IVPUSH PRN (19:53)
[2023-08-24] MEDS: Lactated Ringers 1,000 ML IV SCH (20:11)
[2023-08-24] MEDS: HYDROmorphone 0.5 MG/0.5 ML Syringe IVPUSH PRN (20:12)
[2023-08-24] MEDS: Nicotine 21 MG/24 Hr Patch TRDERM SCH (20:18)
[2023-08-24] MEDS ORDERED: Sertraline 100 MG Tab PO SCH (21:00)
[2023-08-24] MEDS: ALPRAZolam 0.5 MG Tab PO PRN (21:55)
[2023-08-24] MEDS: traZODone 50 MG Tab PO PRN (21:55)
[2023-08-25] MEDS: Sodium Chloride 0.9% 10 ML Syringe FLUSH PRN (03:59)
[2023-08-25] MEDS: Pantoprazole 40 MG Tab.CR PO SCH (06:25)
[2023-08-25 07:03] LABS: BASOPHILS PERCENT AUTO 0.5 % (0.2-1.2); EOSINOPHILS ABSOLUTE AUTO 0.2 x10^3/uL (0.0-0.5); EOSINOPHILS PERCENT AUTO 2.4 % (0.0-4.0); HEMATOCRIT 40.5 % (40.0-52.0); HEMOGLOBIN 13.7 g/dL (14.0-18.0); IMMATURE GRAN ABSOLUTE AUTO 0.03 x10^3/uL (0.00-0.07); LYMPHOCYTES ABSOLUTE AUTO 1.2 x10^3/uL (1.0-4.8); LYMPHOCYTES PERCENT AUTO 18.7 % (25.0-50.0); MEAN CORPUSCULAR HEMOGLOBIN 33.1 pg (26.0-32.0); MEAN CORPUSCULAR HGB CONC 33.8 g/dL (32.0-36.0); MEAN CORPUSCULAR VOLUME 97.8 fL (78.0-93.0); MONOCYTES ABSOLUTE AUTO 0.4 x10^3/uL (0.0-0.8); MONOCYTES PERCENT AUTO 6.6 % (2.0-11.0); NEUTROPHILS ABSOLUTE AUTO 4.7 x10^3/uL (1.8-7.7); NEUTROPHILS PERCENT AUTO 71.3 % (50.0-80.0); PLATELET COUNT,PLT 158 x10^3/uL (130-400); RED BLOOD CELL COUNT 4.14 x10^6/uL (4.5-6.0); WHITE BLOOD CELL COUNT,WBC 6.6 x10^3/uL (4.0-10.0)
[2023-08-25 07:30] LABS: A/G RATIO 0.97; ALBUMIN 3.1 g/dL (3.4-5.0); BILIRUBIN TOTAL 0.5 mg/dL (0.2-1.0); CALCIUM 8.5 mg/dL (8.5-10.1); CREATININE 1.2 mg/dL (0.70-1.30); EST CRCL DRUG DOSING (CG) 77.29 mL/min; MAGNESIUM 1.8 mg/dL (1.8-2.4); POTASSIUM,K 3.5 mmol/L (3.5-5.1); PROTEIN TOTAL,TP 6.3 g/dL (6.4-8.2)
[2023-08-25 07:36] LABS: ANION GAP 15.5 mmol/L (5-15)
[2023-08-25] MEDS: Sertraline 100 MG Tab PO SCH (08:40)
[2023-08-25] MEDS: lamoTRIgine 100 MG Tab PO SCH (08:40)
[2023-08-25] MEDS: Ondansetron 4 MG/2 ML SDV IV PRN (08:46)
[2023-08-25] MEDS: Acetaminophen 325 MG Tab PO PRN (08:47)
[2023-08-25] MEDS: HYDROmorphone 0.5 MG/0.5 ML Syringe IVPUSH ONE (11:19)
[2023-08-25] MEDS: HYDROmorphone 1 MG/ML Syringe IVPUSH PRN (13:57)
[2023-08-25] MEDS ORDERED: HYDROmorphone 1 MG/ML Syringe IVPUSH PRN (15:00)
[2023-08-25] MEDS ORDERED: LORazepam 2 MG/ML SDV IV PRN (17:04)
[2023-08-25] MEDS: LORazepam 1 MG Tab PO PRN (17:35)
[2023-08-25] MEDS: Gabapentin 100 MG Cap PO SCH (18:06)
[2023-08-25] MEDS: Gabapentin 100 MG Cap ONE (19:24)
[2023-08-25] MEDS: LORazepam 1 MG Tab ONE (19:24)
[2023-08-25] MEDS: Thiamine 100 MG Tab PO SCH (20:32)
[2023-08-25] MEDS: Folic Acid 1 MG Tab PO SCH (20:32)
[2023-08-26 06:48] LABS: BASOPHILS PERCENT AUTO 0.3 % (0.2-1.2); EOSINOPHILS ABSOLUTE AUTO 0.1 x10^3/uL (0.0-0.5); EOSINOPHILS PERCENT AUTO 1.7 % (0.0-4.0); HEMATOCRIT 40.1 % (40.0-52.0); HEMOGLOBIN 13.3 g/dL (14.0-18.0); IMMATURE GRAN ABSOLUTE AUTO 0.02 x10^3/uL (0.00-0.07); LYMPHOCYTES ABSOLUTE AUTO 0.7 x10^3/uL (1.0-4.8); LYMPHOCYTES PERCENT AUTO 10.3 % (25.0-50.0); MEAN CORPUSCULAR HEMOGLOBIN 32.7 pg (26.0-32.0); MEAN CORPUSCULAR HGB CONC 33.2 g/dL (32.0-36.0); MEAN CORPUSCULAR VOLUME 98.5 fL (78.0-93.0); MONOCYTES ABSOLUTE AUTO 0.6 x10^3/uL (0.0-0.8); NEUTROPHILS ABSOLUTE AUTO 5.5 x10^3/uL (1.8-7.7); NEUTROPHILS PERCENT AUTO 79.4 % (50.0-80.0); PLATELET COUNT,PLT 139 x10^3/uL (130-400); RED BLOOD CELL COUNT 4.07 x10^6/uL (4.5-6.0); WHITE BLOOD CELL COUNT,WBC 6.9 x10^3/uL (4.0-10.0)
[2023-08-26 07:10] LABS: A/G RATIO 0.86; CALCIUM 8.7 mg/dL (8.5-10.1); EST CRCL DRUG DOSING (CG) 92.86 mL/min; POTASSIUM,K 4.2 mmol/L (3.5-5.1); PROTEIN TOTAL,TP 6.5 g/dL (6.4-8.2)
[2023-08-26 07:41] LABS: ANION GAP 16.2 mmol/L (5-15)
[2023-08-26 08:18] LABS: BILIRUBIN TOTAL 0.6 mg/dL (0.2-1.0)
[2023-08-26] MEDS: Pantoprazole 40 MG Vial IVPUSH SCH (09:31)
[2023-08-27 07:04] LABS: A/G RATIO 0.74; ALBUMIN 2.9 g/dL (3.4-5.0); BILIRUBIN TOTAL 0.5 mg/dL (0.2-1.0); CALCIUM 9.2 mg/dL (8.5-10.1); EST CRCL DRUG DOSING (CG) 92.86 mL/min; POTASSIUM,K 4.2 mmol/L (3.5-5.1); PROTEIN TOTAL,TP 6.8 g/dL (6.4-8.2)
[2023-08-27 07:06] LABS: ANION GAP 14.2 mmol/L (5-15)
[2023-08-27] MEDS: Lactated Ringers 1,000 ML IV SCH (08:50)
[2023-08-27] MEDS: oxyCODONE 5 MG Tab PO PRN (13:14)
[2023-08-27] MEDS: Nicotine 14 MG/24 Hr Patch TRDERM SCH (13:15)
[2023-08-27] MEDS: HYDROmorphone 0.5 MG/0.5 ML Syringe IVPUSH PRN (15:33)
[2023-08-28] MEDS: ALPRAZolam 0.5 MG Tab PO PRN (00:09)
[2023-08-28 07:19] LABS: A/G RATIO 0.73; ANION GAP 15.7 mmol/L (5-15); BILIRUBIN TOTAL 0.4 mg/dL (0.2-1.0); CALCIUM 9.4 mg/dL (8.5-10.1); EST CRCL DRUG DOSING (CG) 92.86 mL/min; POTASSIUM,K 3.7 mmol/L (3.5-5.1); PROTEIN TOTAL,TP 7.1 g/dL (6.4-8.2)
[2023-08-28 13:11] LABS: LAMOTROGINE 4.5 ug/mL (3.0-15.0)
[2023-08-28] MEDS: Lactated Ringers 1,000 ML IV SCH (16:40)
[2023-08-28] MEDS ORDERED: Docusate Sodium 100 MG Cap PO PRN (17:47)
[2023-08-29 08:15] LABS: A/G RATIO 0.76; ALBUMIN 2.9 g/dL (3.4-5.0); ANION GAP 15.5 mmol/L (5-15); BILIRUBIN TOTAL 0.5 mg/dL (0.2-1.0); CALCIUM 9.1 mg/dL (8.5-10.1); CREATININE 1.1 mg/dL (0.70-1.30); EST CRCL DRUG DOSING (CG) 84.42 mL/min; POTASSIUM,K 4.5 mmol/L (3.5-5.1); PROTEIN TOTAL,TP 6.7 g/dL (6.4-8.2)
[2023-08-29] MEDS ORDERED: Calcium Carbonate 750 MG Tab.Chew PO PRN (10:38)
[2023-08-29] MEDS: Multivitamin Tab PO SCH (10:51)
[2023-08-29] MEDS: Aluminum Hydroxide/Magnesium Hydroxide/Simethicone Susp 30 ML Cup PO PRN (10:54)
[2023-08-29] MEDS ORDERED: Gabapentin 100 MG Cap PO SCH (18:00)
[2023-08-29] MEDS: Take Home: Acetaminophen/oxyCODONE 325-5 MG, 5 Tab Pack PO ONE (19:15)
[2023-08-29 19:47] VITALS: BP 139/90; PULSE 77
== END 2023-08-29 19:29 | disposition home or self-care (01) | DRG 440 ==
LOC: VM.ED 15:34 → VM.MS 17:46
PROVIDERS: ADMIT Nurse Practitioner Family; ATTEND Family Medicine
DX: K85.20 Alcohol induced acute pancreatitis without necrosis or infection (principal); K52.9 Noninfective gastroenteritis and colitis, unspecified; K21.9 Gastro-esophageal reflux disease without esophagitis; F41.9 Anxiety disorder, unspecified; F32.A Depression, unspecified; F17.210 Nicotine dependence, cigarettes, uncomplicated; F10.10 Alcohol abuse, uncomplicated; Z98.890 Other specified postprocedural states; Z90.89 Acquired absence of other organs; Z87.898 Personal history of other specified conditions; Z88.8 Allergy status to other drugs, medicaments and biological substances; Z79.899 Other long term (current) drug therapy
CPT/HCPCS: 36415; 74177; 80053; 80175; 80307; 81001; 82150; 83690; 83735; 84484; 85025; 86140; 93005; 99238; 99284; A9270-GY; C9113; J1170; J2405; J3490; J7030; J7120; Q9967

== ENCOUNTER 2023-10-01 11:14 | Day surgery (SDC) | payer SELFPAY ==
[2023-10-01] MEDS: Lactated Ringers 1,000 ML IV SCH (11:37)
[2023-10-01] MEDS ORDERED: fentaNYL 100 MCG/2 ML SDV ONE (13:41)
[2023-10-01] MEDS ORDERED: Midazolam 1 MG/ML 2 ML SDV ONE (13:41)
[2023-10-01] MEDS ORDERED: Propofol 200 MG/20 ML SDV ONE (13:41)
[2023-10-01 14:19] VITALS: BP 101/64; PULSE 75
== END 2023-10-01 14:55 | disposition home or self-care (01) ==
LOC: VM.SDS 11:14
PROVIDERS: ATTEND Family Medicine
DX: K21.00 Gastro-esophageal reflux disease with esophagitis, without bleeding (principal); K22.70 Barrett's esophagus without dysplasia; K44.9 Diaphragmatic hernia without obstruction or gangrene; K29.80 Duodenitis without bleeding; F32.A Depression, unspecified; Z79.899 Other long term (current) drug therapy
CPT/HCPCS: 00731; J2250; J2704; J3010; J7120

== ENCOUNTER 2024-10-11 13:17 | Emergency (ER) | payer SELFPAY ==
[2024-10-11 13:30] VITALS: BP 123/90; PULSE 76
[2024-10-11] MEDS: LORazepam 2 MG/ML SDV IM ONE (13:38)
== END 2024-10-11 15:28 | disposition home or self-care (01) ==
LOC: VM.ED 13:17
DX: F41.9 Anxiety disorder, unspecified (principal); Z88.6 Allergy status to analgesic agent; Z79.899 Other long term (current) drug therapy
CPT/HCPCS: 96372; 99283; 99284; J2060

== ENCOUNTER 2024-11-18 20:02 | Emergency (ER) | payer SELFPAY ==
[2024-11-18 23:34] VITALS: BP 140/90; PULSE 92
== END 2024-11-18 20:32 | disposition home or self-care (01) ==
LOC: VM.ED 20:02
DX: S60.451A Superficial foreign body of left index finger, initial encounter (principal); Z88.6 Allergy status to analgesic agent; Z79.899 Other long term (current) drug therapy; W45.8XXA Other foreign body or object entering through skin, initial encounter; Y93.89 Activity, other specified
CPT/HCPCS: 64450; 99283; J2003